=== PATIENT | male | born 1955 | race Caucasian/White ===

== ENCOUNTER 2022-03-09 22:51 | Emergency (ER) | payer MEDICARE ==
[2022-03-10 00:09] LABS: #Eosinphils 0.1 10x3/uL (0.0-0.5); #Monocytes 0.6 10x3/uL (0.0-1.1); #Neutrophils 5.7 10x3/uL (1.5-8.4); %Basophils 0.5 % (0.0-2.0); %Eosinophils 1.6 % (0.0-6.0); %Lymphocytes 16.5 % (18.0-47.0); %Monocytes 7.3 % (0.0-10.0); Mean Corpuscular HGB CONC 34.8 g/dL (32.0-36.0); Mean Corpuscular Hemoglobin 29.7 pg (27.0-33.0); Mean Corpuscular Volume 85.3 fl (81.2-95.1); Mean Platelet Volume 11.4 fl (7.4-10.4); Platelet Count 237 10x3/uL (150-450); RBC Distribution Width 13.1 % (11.5-14.5); Red Blood Cell (RBC) Count 5.05 10x6/uL (4.32-5.72); White Blood Cell (WBC) Count 7.7 10x3/uL (3.5-10.5)
== END 2022-03-10 01:15 | disposition home or self-care (01) ==
LOC: CSHERS 22:51
DX: K92.1 Melena (principal); I10 Essential (primary) hypertension; Z79.899 Other long term (current) drug therapy
CPT/HCPCS: 36415; 85025; 99284

== ENCOUNTER 2022-03-10 02:34 | Observation (INO) | payer MEDICARE ==
[2022-03-10] MEDS ORDERED: Ondansetron PF 4 MG/2 ML Vial IVP PRN (04:18)
[2022-03-10] MEDS ORDERED: Acetaminophen 325 MG TAB PO PRN (04:18)
[2022-03-10] MEDS ORDERED: Calcium Carbonate 500 MG ChewTAB PO PRN (04:18)
[2022-03-10] MEDS ORDERED: Albuterol Sulfate 2.5 mg/3 ml Neb NEB PRN (04:21)
[2022-03-10 04:26] LABS: SARS-CoV-2 NAA Rapid Test Not Detected (NotDetected)
[2022-03-10] MEDS: Lactated Ringer's 1,000 ML IV SCH ×2 (04:30→14:45)
[2022-03-10] MEDS ORDERED: Pantoprazole 40 MG VIAL ONE ×3 (05:14→08:51)
[2022-03-10] MEDS ORDERED: Pantoprazole 40 MG VIAL IVP SCH (05:15)
[2022-03-10 06:19] LABS: #Eosinphils 0.1 10x3/uL (0.0-0.5); #Monocytes 0.7 10x3/uL (0.0-1.1); #Neutrophils 5.3 10x3/uL (1.5-8.4); %Basophils 0.5 % (0.0-2.0); %Eosinophils 1.4 % (0.0-6.0); %Lymphocytes 24.4 % (18.0-47.0); %Monocytes 8.7 % (0.0-10.0); %Neutrophils 64.8 % (40.0-75.0); Hemoglobin 14.1 g/dL (13.5-17.5); Mean Corpuscular HGB CONC 35.2 g/dL (32.0-36.0); Mean Corpuscular Hemoglobin 29.8 pg (27.0-33.0); Mean Corpuscular Volume 84.8 fl (81.2-95.1); Mean Platelet Volume 11.3 fl (7.4-10.4); Platelet Count 217 10x3/uL (150-450); RBC Distribution Width 13.1 % (11.5-14.5); Red Blood Cell (RBC) Count 4.73 10x6/uL (4.32-5.72); White Blood Cell (WBC) Count 8.1 10x3/uL (3.5-10.5)
[2022-03-10] MEDS ORDERED: Metoprolol Tartrate 25 MG TAB ONE (08:50)
[2022-03-10] MEDS ORDERED: Allopurinol 300 MG TAB PO SCH (09:00)
[2022-03-10] MEDS: Lisinopril 2.5 MG TAB PO SCH (09:17)
[2022-03-10] MEDS: Metoprolol Tartrate 25 MG TAB PO SCH ×2 (09:18→21:08)
[2022-03-10 12:52] LABS: #Eosinphils 0.2 10x3/uL (0.0-0.5); #Monocytes 0.7 10x3/uL (0.0-1.1); #Neutrophils 4.3 10x3/uL (1.5-8.4); %Basophils 0.4 % (0.0-2.0); %Eosinophils 2.4 % (0.0-6.0); %Lymphocytes 25.4 % (18.0-47.0); %Monocytes 9.5 % (0.0-10.0); %Neutrophils 62.2 % (40.0-75.0); Hemoglobin 13.4 g/dL (13.5-17.5); Mean Corpuscular HGB CONC 34.6 g/dL (32.0-36.0); Mean Corpuscular Hemoglobin 29.9 pg (27.0-33.0); Mean Corpuscular Volume 86.4 fl (81.2-95.1); Mean Platelet Volume 11.7 fl (7.4-10.4); Platelet Count 207 10x3/uL (150-450); RBC Distribution Width 13.2 % (11.5-14.5); Red Blood Cell (RBC) Count 4.48 10x6/uL (4.32-5.72); White Blood Cell (WBC) Count 6.9 10x3/uL (3.5-10.5)
[2022-03-10 14:38] VITALS: BMI 39.1
[2022-03-10 17:52] LABS: #Eosinphils 0.1 10x3/uL (0.0-0.5); #Monocytes 0.7 10x3/uL (0.0-1.1); #Neutrophils 4.8 10x3/uL (1.5-8.4); %Basophils 0.4 % (0.0-2.0); %Eosinophils 1.8 % (0.0-6.0); %Lymphocytes 17.2 % (18.0-47.0); %Monocytes 9.7 % (0.0-10.0); %Neutrophils 70.8 % (40.0-75.0); Hemoglobin 13.7 g/dL (13.5-17.5); Mean Corpuscular HGB CONC 34.4 g/dL (32.0-36.0); Mean Corpuscular Hemoglobin 29.7 pg (27.0-33.0); Mean Corpuscular Volume 86.1 fl (81.2-95.1); Mean Platelet Volume 11.3 fl (7.4-10.4); Platelet Count 209 10x3/uL (150-450); RBC Distribution Width 13.2 % (11.5-14.5); Red Blood Cell (RBC) Count 4.62 10x6/uL (4.32-5.72); White Blood Cell (WBC) Count 6.8 10x3/uL (3.5-10.5)
[2022-03-10] MEDS: Allopurinol 300 MG TAB PO SCH (21:08)
[2022-03-10] MEDS: Pantoprazole 40 MG VIAL IVP SCH (21:08)
[2022-03-10] MEDS: Latanoprost 0.005% Ophth Soln 2.5 ml Bottle EA EYE SCH (21:15)
[2022-03-11] MEDS: Lactated Ringer's 1,000 ML IV SCH ×2 (03:25→11:56)
[2022-03-11 04:40] LABS: #Basophils 0.1 10x3/uL (0.0-0.2); #Eosinphils 0.2 10x3/uL (0.0-0.5); #Monocytes 0.7 10x3/uL (0.0-1.1); #Neutrophils 4.8 10x3/uL (1.5-8.4); %Basophils 0.6 % (0.0-2.0); %Eosinophils 2.5 % (0.0-6.0); %Lymphocytes 26.6 % (18.0-47.0); %Monocytes 8.9 % (0.0-10.0); Hemoglobin 14.8 g/dL (13.5-17.5); Mean Corpuscular HGB CONC 34.6 g/dL (32.0-36.0); Mean Corpuscular Hemoglobin 29.7 pg (27.0-33.0); Mean Corpuscular Volume 85.8 fl (81.2-95.1); Mean Platelet Volume 11.3 fl (7.4-10.4); Platelet Count 238 10x3/uL (150-450); RBC Distribution Width 13.1 % (11.5-14.5); Red Blood Cell (RBC) Count 4.99 10x6/uL (4.32-5.72); White Blood Cell (WBC) Count 7.9 10x3/uL (3.5-10.5)
[2022-03-11] MEDS: Lisinopril 2.5 MG TAB PO SCH (09:07)
[2022-03-11] MEDS: Metoprolol Tartrate 25 MG TAB PO SCH ×2 (09:07→21:35)
[2022-03-11] MEDS: Pantoprazole 40 MG VIAL IVP SCH ×2 (09:08→21:36)
[2022-03-11] MEDS ORDERED: GoLYTELY 4,000 ml Bottle PO SCH (18:00)
[2022-03-11] MEDS: Allopurinol 300 MG TAB PO SCH (21:36)
[2022-03-11] MEDS: Latanoprost 0.005% Ophth Soln 2.5 ml Bottle EA EYE SCH (21:36)
[2022-03-12] MEDS: Lactated Ringer's 1,000 ML IV SCH ×2 (02:30→07:48)
[2022-03-12 06:12] LABS: #Eosinphils 0.1 10x3/uL (0.0-0.5); #Monocytes 0.8 10x3/uL (0.0-1.1); #Neutrophils 6.1 10x3/uL (1.5-8.4); %Basophils 0.5 % (0.0-2.0); %Eosinophils 1.1 % (0.0-6.0); %Lymphocytes 16.8 % (18.0-47.0); %Neutrophils 72.2 % (40.0-75.0); Hemoglobin 13.7 g/dL (13.5-17.5); Mean Corpuscular HGB CONC 34.4 g/dL (32.0-36.0); Mean Corpuscular Hemoglobin 29.8 pg (27.0-33.0); Mean Corpuscular Volume 86.7 fl (81.2-95.1); Mean Platelet Volume 11.9 fl (7.4-10.4); Platelet Count 194 10x3/uL (150-450); RBC Distribution Width 13.2 % (11.5-14.5); Red Blood Cell (RBC) Count 4.59 10x6/uL (4.32-5.72); White Blood Cell (WBC) Count 8.4 10x3/uL (3.5-10.5)
[2022-03-12] MEDS: Metoprolol Tartrate 25 MG TAB PO SCH (06:46)
[2022-03-12] MEDS ORDERED: PROPOFOL 20 ML ONE ×3 (08:23→09:47)
[2022-03-12] MEDS ORDERED: Lidocaine 1% PF 5 ML VIAL ONE (08:23)
[2022-03-12] MEDS ORDERED: PHENYLEPHRINE-NS 100 MCG/ML 10 ML SYRINGE ONE (10:04)
[2022-03-12 11:47] VITALS: TEMP 98
[2022-03-12] MEDS: Lisinopril 2.5 MG TAB PO SCH (11:49)
[2022-03-12] MEDS: Pantoprazole 40 MG VIAL IVP SCH (11:49)
[2022-03-12 14:43] VITALS: BP 123/65
== END 2022-03-12 15:34 | disposition home or self-care (01) ==
LOC: CSHERS 02:34 → INTOOBSV 04:35 → CSHERHOLD 04:35 → CSHTELE 14:32
PROVIDERS: ADMIT Emergency Medicine; ATTEND Internal Medicine
PROC: 0W3P8ZZ Control Bleeding in Gastrointestinal Tract, Via Natural or Artificial Opening Endoscopic (ICD-10-PCS; principal; 2022-03-12)
PROC: 0DBK8ZZ Excision of Ascending Colon, Via Natural or Artificial Opening Endoscopic (ICD-10-PCS; 2022-03-12)
PROC: 0DBL8ZZ Excision of Transverse Colon, Via Natural or Artificial Opening Endoscopic (ICD-10-PCS; 2022-03-12)
DX: D12.2 Benign neoplasm of ascending colon (principal); D12.3 Benign neoplasm of transverse colon; K57.31 Diverticulosis of large intestine without perforation or abscess with bleeding; K64.8 Other hemorrhoids; K63.3 Ulcer of intestine; K29.60 Other gastritis without bleeding; I10 Essential (primary) hypertension; Z20.822 Contact with and (suspected) exposure to COVID-19; I25.10 Atherosclerotic heart disease of native coronary artery without angina pectoris; J45.909 Unspecified asthma, uncomplicated; R73.03 Prediabetes; M10.9 Gout, unspecified; Z79.82 Long term (current) use of aspirin; Z79.899 Other long term (current) drug therapy; Z88.0 Allergy status to penicillin; Z88.8 Allergy status to other drugs, medicaments and biological substances
CPT/HCPCS: 45382; 45385; 85025 ×4; 96366; 96374; 96376 ×2; 99285; G0378 ×4; U0002; 36415; 88305; C9113; J2704; J7120

== ENCOUNTER 2022-04-12 00:20 | Observation (INO) | payer MEDICARE ==
[2022-04-12 01:05] LABS: #Eosinphils 0.1 10x3/uL (0.0-0.5); #Monocytes 0.5 10x3/uL (0.0-1.1); #Neutrophils 4.2 10x3/uL (1.5-8.4); %Basophils 0.5 % (0.0-2.0); %Eosinophils 2.1 % (0.0-6.0); %Lymphocytes 22.9 % (18.0-47.0); %Monocytes 7.7 % (0.0-10.0); %Neutrophils 66.5 % (40.0-75.0); Hemoglobin 15.1 g/dL (13.5-17.5); Mean Corpuscular Hemoglobin 29.8 pg (27.0-33.0); Mean Corpuscular Volume 85.2 fl (81.2-95.1); Mean Platelet Volume 11.4 fl (7.4-10.4); Platelet Count 209 10x3/uL (150-450); RBC Distribution Width 13.5 % (11.5-14.5); Red Blood Cell (RBC) Count 5.06 10x6/uL (4.32-5.72); White Blood Cell (WBC) Count 6.2 10x3/uL (3.5-10.5)
[2022-04-12] MEDS ORDERED: Aspirin Chewable 81 MG TAB ONE (01:12)
[2022-04-12 01:49] LABS: ALT (SGPT) 32 U/L (8-55); AST (SGOT) 23 U/L (5-34); Albumin 4.2 g/dL (3.4-4.8); Alkaline Phosphatase 78 U/L (40-110); Anion Gap 14 mmol/L (10-20); BUN (Urea Nitrogen) 8 mg/dL (8.4-25.7); Bilirubin, Total 0.9 mg/dL (0.2-1.2); Calc. Creatinine Clearance 0 mL/min (70-130); Calcium 10.4 mg/dL (7.8-10.44); Carbon Dioxide 23 mmol/L (23-31); Chloride 105 mmol/L (98-107); Estimated GFR 97; Globulin 3.3 g/dL (2.4-3.5); Glucose 120 mg/dL (80-115); Potassium 3.5 mmol/L (3.5-5.1); Protein, Total 7.5 g/dL (5.8-8.1); Sodium 138 mmol/L (136-145)
[2022-04-12 03:55] VITALS: BMI 36.2
[2022-04-12] MEDS ORDERED: Nitroglycerin 0.4 MG TAB (25 Tab Bottle) SL PRN (04:15)
[2022-04-12 04:55] LABS: Magnesium 1.9 mg/dL (1.6-2.6)
[2022-04-12 05:00] LABS: SARS-CoV-2 NAA Rapid Test Not Detected (NotDetected)
[2022-04-12] MEDS: Nitroglycerin 2% Ointment 1 INCH/1 GM Packet TOP SCH ×2 (06:18→14:39)
[2022-04-12 08:23] LABS: Troponin I Less than 0.010 ng/mL (< 0.028)
[2022-04-12] MEDS ORDERED: Aspirin 81 mg Enteric Coated Tablet PO SCH (09:00)
[2022-04-12] MEDS ORDERED: [UNRECOGNIZED DRUG - OTHER] EA EYE SCH (09:00)
[2022-04-12] MEDS ORDERED: Metoprolol Tartrate 25 MG TAB PO SCH (09:00)
[2022-04-12] MEDS ORDERED: BRIMONIDINE TART EA EYE SCH (09:00)
[2022-04-12] MEDS ORDERED: Enoxaparin Sodium 40 MG/0.4 ML SYRINGE SC SCH (09:00)
[2022-04-12] MEDS ORDERED: BRINZOLAMIDE EA EYE SCH (09:00)
[2022-04-12] MEDS: Lisinopril 5 MG TAB PO SCH ×2 (09:09→09:12)
[2022-04-12] MEDS: Allopurinol 300 MG TAB PO SCH ×2 (09:10→13:33)
[2022-04-12] MEDS: Brimonidine Tartrate 0.2% Ophth Soln 5 ml Bottle EA EYE SCH ×2 (11:12→16:56)
[2022-04-12] MEDS: Dorzolamide HCl 2% Ophth Soln 10 ml Bottle EA EYE SCH ×2 (11:15→14:38)
[2022-04-12 12:21] VITALS: TEMP 97.5
[2022-04-12 14:48] VITALS: BP 102/63
[2022-04-12] MEDS ORDERED: Allopurinol 300 MG TAB PO SCH (21:00)
[2022-04-12] MEDS ORDERED: Latanoprost 0.005% Ophth Soln 2.5 ml Bottle EA EYE SCH (21:00)
== END 2022-04-12 19:50 | disposition home or self-care (01) ==
LOC: CSHERS 00:20 → CSHTELE 03:51
PROVIDERS: ADMIT Family Medicine; ATTEND Internal Medicine
DX: R00.0 Tachycardia, unspecified (principal); I25.10 Atherosclerotic heart disease of native coronary artery without angina pectoris; I10 Essential (primary) hypertension; E78.5 Hyperlipidemia, unspecified; R73.03 Prediabetes; J45.20 Mild intermittent asthma, uncomplicated; M10.9 Gout, unspecified; H40.9 Unspecified glaucoma; Z20.822 Contact with and (suspected) exposure to COVID-19; Z79.82 Long term (current) use of aspirin; Z79.899 Other long term (current) drug therapy; Z88.0 Allergy status to penicillin; Z88.8 Allergy status to other drugs, medicaments and biological substances; Z87.891 Personal history of nicotine dependence; Z96.643 Presence of artificial hip joint, bilateral
CPT/HCPCS: 71045; 83690; 83735; 84484 ×2; 93005; 96372; G0378 ×2; U0002; 36415; 80053; 84443; 85025; 93010; J1650

== ENCOUNTER 2022-04-16 11:00 | Emergency (ER) | payer MEDICARE ==
[~2022-04-16 11:00] MED LIST: Iopamidol 370 76% 100 ML VIAL ONE
[2022-04-16 11:58] LABS: #Eosinphils 0.1 10x3/uL (0.0-0.5); #Monocytes 0.6 10x3/uL (0.0-1.1); #Neutrophils 4.8 10x3/uL (1.5-8.4); %Basophils 0.6 % (0.0-2.0); %Eosinophils 1.5 % (0.0-6.0); %Lymphocytes 15.6 % (18.0-47.0); %Monocytes 8.6 % (0.0-10.0); %Neutrophils 73.4 % (40.0-75.0); Hemoglobin 15.4 g/dL (13.5-17.5); Mean Corpuscular HGB CONC 35.1 g/dL (32.0-36.0); Mean Corpuscular Hemoglobin 30.2 pg (27.0-33.0); Mean Corpuscular Volume 86.1 fl (81.2-95.1); Mean Platelet Volume 11.4 fl (7.4-10.4); Platelet Count 212 10x3/uL (150-450); RBC Distribution Width 13.2 % (11.5-14.5); White Blood Cell (WBC) Count 6.5 10x3/uL (3.5-10.5)
[2022-04-16 12:16] LABS: ALT (SGPT) 30 U/L (8-55); AST (SGOT) 24 U/L (5-34); Albumin 4.2 g/dL (3.4-4.8); Alkaline Phosphatase 84 U/L (40-110); Anion Gap 15 mmol/L (10-20); BUN (Urea Nitrogen) 8 mg/dL (8.4-25.7); Bilirubin, Total 1.4 mg/dL (0.2-1.2); Calc. Creatinine Clearance 0 mL/min (70-130); Calcium 9.7 mg/dL (7.8-10.44); Carbon Dioxide 23 mmol/L (23-31); Chloride 102 mmol/L (98-107); Estimated GFR 98; Globulin 3.4 g/dL (2.4-3.5); Glucose 110 mg/dL (80-115); Lipase 21 U/L (8-78); Potassium 3.7 mmol/L (3.5-5.1); Protein, Total 7.6 g/dL (5.8-8.1); Sodium 136 mmol/L (136-145)
[2022-04-16] MEDS ORDERED: Ondansetron PF 4 MG/2 ML Vial ONE (12:22)
[2022-04-16] MEDS ORDERED: Morphine 4 MG/ML VIAL ONE ×2 (12:22→15:18)
[2022-04-16] MEDS ORDERED: Ketorolac Tromethamine 30 MG/ML VIAL ONE (15:18)
[2022-04-16] MEDS ORDERED: Acetaminophen 500 MG TAB ONE (15:19)
[2022-04-16 15:32] LABS: Bilirubin Neg (Negative); Blood, Urine Negative (Negative); Clarity Clear (Clear); Glucose, Urine (Dipstick) Normal (Negative); Ketone, Urine 50 mg/dL (Negative); Leukocyte Negative (Negative); Nitrite Negative (Negative); Protein, Urine (Dipstick) Negative (Neg-Trace); Specific Gravity, Urine 1.005 (1.002-1.036); Urobilinogen Normal mg/dL (Less than 2)
== END 2022-04-16 16:39 | disposition home or self-care (01) ==
LOC: CSHERS 11:00
DX: M47.816 Spondylosis without myelopathy or radiculopathy, lumbar region (principal); R63.4 Abnormal weight loss; I10 Essential (primary) hypertension; M10.9 Gout, unspecified
CPT/HCPCS: 71275; 74177; 80053; 81003; 83690; 85025; 96374; 96375; J1885; J2270; J2405; Q9967

== ENCOUNTER 2022-04-28 00:54 | Observation (INO) | payer MEDICARE ==
[2022-04-28 01:35] LABS: #Eosinphils 0.2 10x3/uL (0.0-0.5); #Monocytes 0.6 10x3/uL (0.0-1.1); #Neutrophils 4.6 10x3/uL (1.5-8.4); %Basophils 0.4 % (0.0-2.0); %Eosinophils 2.8 % (0.0-6.0); %Lymphocytes 24.7 % (18.0-47.0); %Monocytes 8.2 % (0.0-10.0); %Neutrophils 63.6 % (40.0-75.0); Hemoglobin 14.2 g/dL (13.5-17.5); Mean Corpuscular HGB CONC 34.4 g/dL (32.0-36.0); Mean Corpuscular Hemoglobin 29.5 pg (27.0-33.0); Mean Corpuscular Volume 85.9 fl (81.2-95.1); Mean Platelet Volume 11.5 fl (7.4-10.4); Platelet Count 231 10x3/uL (150-450); RBC Distribution Width 13.5 % (11.5-14.5); Red Blood Cell (RBC) Count 4.81 10x6/uL (4.32-5.72); White Blood Cell (WBC) Count 7.2 10x3/uL (3.5-10.5)
[2022-04-28 01:51] LABS: ALT (SGPT) 30 U/L (8-55); AST (SGOT) 27 U/L (5-34); Albumin 4.1 g/dL (3.4-4.8); Alkaline Phosphatase 84 U/L (40-110); Anion Gap 17 mmol/L (10-20); BUN (Urea Nitrogen) 12 mg/dL (8.4-25.7); Bilirubin, Total 0.9 mg/dL (0.2-1.2); Calc. Creatinine Clearance 0 mL/min (70-130); Calcium 9.5 mg/dL (7.8-10.44); Carbon Dioxide 21 mmol/L (23-31); Chloride 104 mmol/L (98-107); Estimated GFR 98; Globulin 2.9 g/dL (2.4-3.5); Glucose 123 mg/dL (80-115); Potassium 3.8 mmol/L (3.5-5.1); Sodium 138 mmol/L (136-145)
[2022-04-28] MEDS ORDERED: Acetaminophen 325 MG TAB PO PRN (05:52)
[2022-04-28] MEDS ORDERED: Zolpidem Tartrate 5 MG TAB PO PRN (05:52)
[2022-04-28] MEDS ORDERED: Senokot S 8.6-50 MG TAB PO PRN (05:52)
[2022-04-28] MEDS ORDERED: Calcium Carbonate 500 MG ChewTAB PO PRN (05:52)
[2022-04-28] MEDS ORDERED: Ondansetron PF 4 MG/2 ML Vial IVP PRN (05:52)
[2022-04-28] MEDS ORDERED: Guaifenesin DM 100-10/5 ML UDCUP PO PRN (05:52)
[2022-04-28 08:03] VITALS: BMI 34.9
[2022-04-28 08:53] LABS: Magnesium 2.1 mg/dL (1.6-2.6)
[2022-04-28] MEDS ORDERED: Magnesium Oxide 400 MG TAB PO SCH (09:00)
[2022-04-28] MEDS ORDERED: Metoprolol Tartrate 25 MG TAB PO SCH (09:00)
[2022-04-28] MEDS ORDERED: Brinzolamide 1% Ophth SUSP 10 ml Bottle EA EYE SCH (09:00)
[2022-04-28] MEDS ORDERED: Dorzolamide HCl 2% Ophth Soln 10 ml Bottle EA EYE SCH (09:00)
[2022-04-28] MEDS ORDERED: Lisinopril 5 MG TAB PO SCH (09:00)
[2022-04-28] MEDS ORDERED: Brimonidine Tartrate 0.2% Ophth Soln 5 ml Bottle EA EYE SCH (09:00)
[2022-04-28] MEDS ORDERED: Aspirin 81 mg Enteric Coated Tablet PO SCH (09:00)
[2022-04-28] MEDS: Potassium Chloride 20 MEQ TAB PO SCH ×2 (09:25→09:27)
[2022-04-28] MEDS ORDERED: PATIENT'S HOME MEDICATION EA EYE SCH ×2 (15:00→21:00)
[2022-04-28 16:40] VITALS: BP 124/72; TEMP 97.6
[2022-04-28] MEDS ORDERED: Allopurinol 300 MG TAB PO SCH (21:00)
[2022-04-28] MEDS ORDERED: Latanoprost 0.005% Ophth Soln 2.5 ml Bottle EA EYE SCH (21:00)
[2022-04-29] MEDS ORDERED: Enoxaparin Sodium 40 MG/0.4 ML SYRINGE SC SCH (09:00)
== END 2022-04-28 19:32 | disposition home or self-care (01) ==
LOC: SUATTDRO 00:54 → CSHERS 00:54 → CSHTELE 07:55
PROVIDERS: ADMIT Student in an Organized Health Care Education/Training Program; ATTEND Student in an Organized Health Care Education/Training Program
DX: R00.2 Palpitations (principal); R00.0 Tachycardia, unspecified; I25.10 Atherosclerotic heart disease of native coronary artery without angina pectoris; I10 Essential (primary) hypertension; E78.5 Hyperlipidemia, unspecified; R73.03 Prediabetes; J45.20 Mild intermittent asthma, uncomplicated; M10.9 Gout, unspecified; H40.9 Unspecified glaucoma; Z87.19 Personal history of other diseases of the digestive system; Z79.82 Long term (current) use of aspirin; Z79.899 Other long term (current) drug therapy; Z88.0 Allergy status to penicillin; Z88.8 Allergy status to other drugs, medicaments and biological substances; Z20.822 Contact with and (suspected) exposure to COVID-19; Z98.890 Other specified postprocedural states
CPT/HCPCS: 71045; 83735; 84484 ×2; 93005; U0003; U0005; 80053; 84443; 85025; G0378